=== PATIENT | female | born 1955 | race Caucasian/White ===

== ENCOUNTER 2023-02-03 05:34 | Day surgery (SDC) | payer OTHER ==
[~2023-02-03] VITALS: Ht 152.4 cm; Wt 93.2 kg
[~2023-02-03 05:34] MED LIST: ALEN70TA65 PO; ATOR40TA28 PO; CHOL25TA4 PO; DULA0.75 SQ; FERR325T27 PO; LINA5TAB PO; METF-1211 PO
[2023-02-03] MEDS ORDERED: SODIUM CHLORIDE 0.9% 1,000 ML ONE (06:36)
[2023-02-03 07:46] LABS: GLUCOMETER DEV NAME(LOC) SDS.; GLUCOSE,POINT OF CARE 107 MG/DL (70-110)
[2023-02-03] MEDS ORDERED: SODIUM CHLORIDE 0.9% 1,000 ML IV ONE (08:30)
[2023-02-03] MEDS ORDERED: OXYGEN THERAPY IH SCH (09:00)
[2023-02-03] MEDS ORDERED: PROPOFOL 1% 20 ML VIAL IVP ONE (12:00)
[2023-02-03] MEDS ORDERED: LIDOCAINE/PF 2% 5 ML VIAL IM ONE (12:00)
== END 2023-02-03 10:20 | disposition home or self-care (01) ==
LOC: SURGERY 05:34
PROVIDERS: ATTEND Specialist
DX: K29.50 Unspecified chronic gastritis without bleeding (principal); D50.9 Iron deficiency anemia, unspecified; E78.00 Pure hypercholesterolemia, unspecified; B96.81 Helicobacter pylori [H. pylori] as the cause of diseases classified elsewhere; D64.9 Anemia, unspecified; K25.9 Gastric ulcer, unspecified as acute or chronic, without hemorrhage or perforation; Z79.899 Other long term (current) drug therapy; Z98.890 Other specified postprocedural states; K44.9 Diaphragmatic hernia without obstruction or gangrene; E11.9 Type 2 diabetes mellitus without complications; E66.3 Overweight; G47.30 Sleep apnea, unspecified
CPT/HCPCS: 43239; 93005; 82962; 88305; 88312; 88313; C1769; J2704; J3490; J7030